=== PATIENT | male | born 1990 | race Caucasian/White ===

== ENCOUNTER 2018-10-21 14:51 | Emergency (ER) | payer OTHER ==
[2018-10-21] MEDS ORDERED: KETOROLAC 30 MG/ML 1 ML VIAL IVP STA (15:35)
[2018-10-21] MEDS ORDERED: ONDANSETRON 4 MG/2 ML VIAL IVP STA (15:35)
[2018-10-21] MEDS ORDERED: diphenhydrAMINE 50 MG/ML 1 ML VIAL IVP STA (15:35)
[2018-10-21] MEDS ORDERED: SODIUM CHLORIDE 0.9% 1,000 ML IV STA (15:35)
[2018-10-21 16:00] LABS: Basophils % (A) 0 %; Eosinophils # (A) 0.3 k/uL (0-0.7); Eosinophils % (A) 3 %; HCT 43.1 % (39.0-53.0); HGB 14.8 gm/dL (13.0-17.5); Lymphocytes # (A) 2.2 k/uL (1.0-4.8); Lymphocytes % (A) 21 %; MCHC 34.4 g/dL (31.0-37.0); MCV 84.4 fL (80.0-100.0); Mean Platelet Volume 6.7; Monocytes # (A) 0.3 k/uL (0-1.0); Monocytes % (A) 3 %; Neutrophils # (A) 7.5 k/uL (1.3-7.7); Neutrophils % (A) 73 %; Platelet Count 278 k/uL (150-450); RBC 5.11 m/uL (4.30-5.90); RDW 12.9 % (11.5-15.5); WBC 10.3 k/uL (3.8-10.6)
[2018-10-21 16:10] LABS: ALT 32 U/L (21-72); AST 22 U/L (17-59); African American GFR (CKD) >90 (>60 ml/min/1.73 sqM); Albumin 4.6 g/dL (3.5-5.0); Alkaline Phosphatase 54 U/L (38-126); Anion Gap 12 mmol/L; Blood Urea Nitrogen 17 mg/dL (9-20); Calcium 9.9 mg/dL (8.4-10.2); Carbon Dioxide 23 mmol/L (22-30); Chloride 104 mmol/L (98-107); Glucose 109 mg/dL (74-99); Potassium 3.9 mmol/L (3.5-5.1); Sodium 139 mmol/L (137-145); Total Bilirubin 0.4 mg/dL (0.2-1.3); Total Protein 7.2 g/dL (6.3-8.2)
--- NOTE | 2018-10-21 16:16 | XR ---
EXAMINATION TYPE: XR chest 2V DATE OF EXAM: 10/21/2018 COMPARISON: 02/15/2013 INDICATION: Cough, pain TECHNIQUE: Frontal and lateral views of the chest are obtained. FINDINGS: The heart size is normal. The pulmonary vasculature is normal. The lungs are clear. Azygos fissure is present, normal variant. IMPRESSION: 1. No acute pulmonary process.
--- NOTE | 2018-10-21 16:32 | ED ---
Headache HPI - General Chief Complaint: Headache Stated Complaint: Headache, vomiting Time Seen by Provider: 10/21/18 15:11 Mode of arrival: ambulatory Limitations: no limitations - History of Present Illness Initial Comments: Patient is a 28-year-old male presenting to the emergency Department with complaints of nausea, vomiting, headache 5 days. Patient states he started fe jose sick about a week ago with nausea and vomiting as well as having trouble urinating. Patient admits to having diarrhea the first couple days, but denies diarrhea presently. Patient also admits to having hot flashes, chills, mild cough, chest congestion. Patient states he has a history of migraines and this is not feel as severe as those. Patient does take Imitrex for his migraines. Patient states he has a history of hepatitis C that was treated. Patient denies abdominal pain, chest pain, shortness of breath at this time. Upon arrival, patient is afebrile and resting comfortable on the bed. Patient states he has not taken anything for his headache today. Patient has not been able to eat and drink like normal this past week. Patient denies any other recent illnesses, antibiotic use. - Related Data Home Medications Medication Instructions Recorded Confirmed Buprenorphine HCl/Naloxone HCl 1 film SL BID 10/21/18 10/21/18 [Suboxone 8 mg-2 mg Sl Film] FLUoxetine HCL [PROzac] 20 mg PO DAILY 10/21/18 10/21/18 Lisinopril [Zestril] 10 mg PO DAILY 10/21/18 10/21/18 Omeprazole 20 mg PO DAILY 10/21/18 10/21/18 Previous Rx's Medication Instructions Recorded Ondansetron Odt [Zofran Odt] 8 mg PO Q8HR #10 tab 10/21/18 SUMAtriptan SUCCINATE [Imitrex] 25 mg PO ONCE #8 tablet 10/21/18 Allergies Allergy/AdvReac Type Severity Reaction Status Date / Time No Known Allergies Allergy Verified 10/21/18 15:17 Review of Systems ROS Statement: Those systems with pertinent positive or pertinent negative responses have been documented in the HPI. ROS Other: All systems not noted in ROS Statement are negative. Past Medical History Past Medical History: GERD/Reflux History of Any Multi-Drug Resistant Organisms: MRSA Date of last positivie culture/infection: 2015 MDRO Source:: leg Past Surgical History: No Surgical Hx Reported Past Psychological History: Anxiety, Depression Smoking Status: Current every day smoker Past Alcohol Use History: None Reported Past Drug Use History: None Reported General Exam - General Exam Comments Initial Comments: GENERAL: Well-appearing, well-nourished and in no acute distress. HEAD: Atraumatic, normocephalic. EYES: Pupils equal round and reactive to light, extraocular movements intact, sclera anicteric, conjunctiva are normal. ENT: TMs normal, nares patent, oropharynx clear without exudates. Moist mucous membranes. NECK: Normal range of motion, supple without lymphadenopathy or JVD. LUNGS: Breath sounds clear to auscultation bilaterally and equal. No wheezes rales or rhonchi. HEART: Regular rate and rhythm without murmurs, rubs or gallops. ABDOMEN: Soft, nontender, normoactive bowel sounds. No guarding, no rebound. No masses appreciated. : Deferred EXTREMITIES: Normal range of motion, no pitting or edema. No clubbing or cyanosis. NEUROLOGICAL: Cranial nerves II through XII grossly intact. Normal speech, normal gait. PSYCH: Normal mood, normal affect. SKIN: Warm, Dry, normal turgor, no rashes or lesions noted. Limitations: no limitations Course Vital Signs 10/21/18 10/21/18 14:59 16:00 Temperature 98.2 F Pulse Rate 72 88 Respiratory 18 16 Rate Blood Pressure 127/79 128/65 O2 Sat by Pulse 99 98 Oximetry Medical Decision Making - Medical Decision Making Patient is a 20-year-old male with complaints of nausea, vomiting, headache for the last 5 days. Patient states he has not been able to eat or drink much the last few days. Patient denies any abdominal pain at this time. Patient also admits to having a hard time urinating, however this been going on for a few months now. Patient does see his PCP for this. Patient's exam is unremarkable. Patient is afebrile, no abdominal pain, neuro exam is normal. CBC, CMP, UA are within normal limits. Chest x-ray shows no acute pulmonary process. Patient was given fluids, Zofran, Toradol, Benadryl with improvement in headache. It was discussed with patient that his headache is most likely related to dehydration from a possible viral gastroenteritis. Patient is stable for discharge and is agreement with this plan. Patient will be given a refill for Imitrex and Zofran. Return parameters were discussed with the patient and he verbalized understanding. Case discussed with Dr. Gee. - Lab Data Result diagrams: 10/21/18 15:50 10/21/18 15:50 Lab Results 10/21/18 10/21/18 10/21/18 Range/Units 15:50 15:50 16:00 WBC 10.3 (3.8-10.6) k/uL RBC 5.11 (4.30-5.90) m/uL Hgb 14.8 (13.0-17.5) gm/dL Hct 43.1 (39.0-53.0) % MCV 84.4 (80.0-100.0) fL MCH 29.0 (25.0-35.0) pg MCHC 34.4 (31.0-37.0) g/dL RDW 12.9 (11.5-15.5) % Plt Count 278 (150-450) k/uL Neutrophils % 73 % Lymphocytes % 21 % Monocytes % 3 % Eosinophils % 3 % Basophils % 0 % Neutrophils # 7.5 (1.3-7.7) k/uL Lymphocytes # 2.2 (1.0-4.8) k/uL Monocytes # 0.3 (0-1.0) k/uL Eosinophils # 0.3 (0-0.7) k/uL Basophils # 0.0 (0-0.2) k/uL Sodium 139 (137-145) mmol/L Potassium 3.9 (3.5-5.1) mmol/L Chloride 104 (98-107) mmol/L Carbon Dioxide 23 (22-30) mmol/L Anion Gap 12 mmol/L BUN 17 (9-20) mg/dL Creatinine 1.00 (0.66-1.25) mg/dL Est GFR (CKD-EPI)AfAm >90 (>60 ml/min/1.73 sqM) Est GFR (CKD-EPI)NonAf >90 (>60 ml/min/1.73 sqM) Glucose 109 H (74-99) mg/dL Calcium 9.9 (8.4-10.2) mg/dL Total Bilirubin 0.4 (0.2-1.3) mg/dL AST 22 (17-59) U/L ALT 32 (21-72) U/L Alkaline Phosphatase 54 (38-126) U/L Total Protein 7.2 (6.3-8.2) g/dL Albumin 4.6 (3.5-5.0) g/dL Urine Color Yellow Urine Appearance Clear (Clear) Urine pH 6.5 (5.0-8.0) Ur Specific [place] 1.010 (1.001-1.035) Urine Protein Negative (Negative) Urine Glucose (UA) Negative (Negative) Urine Ketones Negative (Negative) Urine Blood Negative (Negative) Urine Nitrite Negative (Negative) Urine Bilirubin Negative (Negative) Urine Urobilinogen <2.0 (<2.0) mg/dL Ur Leukocyte Esterase Negative (Negative) Disposition Clinical Impression: Nausea & vomiting, Headache Disposition: HOME SELF-CARE Condition: Stable Instructions (If sedation given, give patient instructions): Acute Headache (ED), Dehydration (ED) Additional Instructions: Please return to the Emergency Department if symptoms worsen or any other concerns. Prescriptions: SUMAtriptan SUCCINATE [Imitrex] 25 mg PO ONCE #8 tablet Ondansetron Odt [Zofran Odt] 8 mg PO Q8HR #10 tab Is patient prescribed a controlled substance at d/c from ED?: No Referrals: None,Stated [Primary Care Provider] - 1-2 days
[2018-10-21 17:04] LABS: Appearance,Urine Clear (Clear); Bilirubin,Urine Negative (Negative); Blood,Urine Negative (Negative); Color,Urine Yellow; Glucose,Urine (UA) Negative (Negative); Ketones,Urine Negative (Negative); Leukocyte Esterase,Urine Negative (Negative); Nitrite,Urine Negative (Negative); PH, Urine 6.5 (5.0-8.0); Protein,Urine Negative (Negative); Urobilinogen,Urine <2.0 mg/dL (<2.0)
[2018-10-21 17:40] VITALS: BP 122/71; PULSE 80; RESP 18; TEMP 97.8
== END 2018-10-21 17:40 | disposition home or self-care (01) ==
LOC: EC 14:51
DX: R51 Headache (principal); R11.2 Nausea with vomiting, unspecified; R39.198 Other difficulties with micturition; R05 Cough; R68.83 Chills (without fever); R09.89 Other specified symptoms and signs involving the circulatory and respiratory systems; K21.9 Gastro-esophageal reflux disease without esophagitis; F41.9 Anxiety disorder, unspecified; F32.9 Major depressive disorder, single episode, unspecified; F17.200 Nicotine dependence, unspecified, uncomplicated; Z86.69 Personal history of other diseases of the nervous system and sense organs; Z86.14 Personal history of Methicillin resistant Staphylococcus aureus infection; Z79.891 Long term (current) use of opiate analgesic; Z79.899 Other long term (current) drug therapy
CPT/HCPCS: 36415; 80053; 85025; 81003; 71046; 99283; 96374; 96375 ×2; 96361; J1200; J2405; J1885

== ENCOUNTER 2019-09-13 23:57 | Observation (INO) | payer OTHER ==
[2019-09-14 00:17] VITALS: TEMP 98.5
[2019-09-14 01:22] LABS: Appearance,Urine Clear (Clear); Bilirubin,Urine Negative (Negative); Blood,Urine Negative (Negative); Color,Urine Yellow; Glucose,Urine (UA) Negative (Negative); Ketones,Urine 2+ (Negative); Leukocyte Esterase,Urine Negative (Negative); Nitrite,Urine Negative (Negative); Protein,Urine Trace (Negative); Specific Gravity,Urine 1.028 (1.001-1.035)
--- NOTE | 2019-09-14 02:11 | ED ---
Nausea/Vomiting/Diarrhea HPI - General Chief complaint: Nausea/Vomiting/Diarrhea Stated complaint: Vomiting Time Seen by Provider: 09/14/19 01:32 Source: patient, RN notes reviewed, old records reviewed Mode of arrival: ambulatory Limitations: no limitations - History of Present Illness Initial comments: this is a 29-year-old male for significant nausea and vomiting. Abdominal pain diffuse body pain sweating. Patient is persistent nausea vomiting here in the ER. Nursing travel history sick contacts. Patient's methadone dose was changed is having significant withdrawal from opiate. Patient to nausea vomiting is unable to keep down methadone or any other medications that he does take. Patient has generalized body pain but no specific abdominal pain MD complaint: nausea, vomiting, diarrhea -: days(s) Description of Vomiting: watery, bilious Description of Diarrhea: water Associated Abdominal Pain: Yes Location: diffuse Radiation: none Severity: moderate Severity scale (1-10): 6 Quality: aching Consistency: constant Improves with: none Worsens with: none Context: other (Opiate abuse) Associated Symptoms: myalgias, loss of appetite, malaise, nausea/vomiting, we akness - Related Data Home Medications Medication Instructions Recorded Confirmed Buprenorphine HCl/Naloxone HCl 1 film SL BID 10/21/18 10/21/18 [Suboxone 8 mg-2 mg Sl Film] FLUoxetine HCL [PROzac] 20 mg PO DAILY 10/21/18 10/21/18 Lisinopril [Zestril] 10 mg PO DAILY 10/21/18 10/21/18 Omeprazole 20 mg PO DAILY 10/21/18 10/21/18 Previous Rx's Medication Instructions Recorded Ondansetron Odt [Zofran Odt] 8 mg PO Q8HR #10 tab 10/21/18 SUMAtriptan SUCCINATE [Imitrex] 25 mg PO ONCE #8 tablet 10/21/18 Allergies Allergy/AdvReac Type Severity Reaction Status Date / Time No Known Allergies Allergy Verified 09/14/19 00:15 Review of Systems ROS Statement: Those systems with pertinent positive or pertinent negative responses have been documented in the HPI. ROS Other: All systems not noted in ROS Statement are negative. Past Medical History Past Medical History: GERD/Reflux History of Any Multi-Drug Resistant Organisms: MRSA Date of last positivie culture/infection: 2015 MDRO Source:: leg Past Surgical History: No Surgical Hx Reported Past Psychological History: Anxiety, Depression Smoking Status: Current every day smoker Past Alcohol Use History: Rare Past Drug Use History: Heroin General Exam Limitations: no limitations General appearance: alert, in no apparent distress Head exam: Present: atraumatic, normocephalic, normal inspection Eye exam: Present: normal appearance, PERRL, EOMI. Absent: scleral icterus, conjunctival injection, periorbital swelling ENT exam: Present: normal exam, mucous membranes moist Neck exam: Present: normal inspection. Absent: tenderness, meningismus, lymphadenopathy Respiratory exam: Present: normal lung sounds bilaterally. Absent: respiratory distress, wheezes, rales, rhonchi, stridor Cardiovascular Exam: Present: normal rhythm, tachycardia, normal heart sounds. Absent: systolic murmur, diastolic murmur, rubs, gallop, clicks GI/Abdominal exam: Present: soft, normal bowel sounds. Absent: distended, tenderness, guarding, rebound, rigid Extremities exam: Present: normal inspection, full ROM, normal capillary refill. Absent: tenderness, pedal edema, joint swelling, calf tenderness Back exam: Present: normal inspection Neurological exam: Present: alert, oriented X3, CN II-XII intact Psychiatric exam: Present: normal affect, normal mood Skin exam: Present: warm, dry, intact, normal color. Absent: rash Course Vital Signs 09/14/19 09/14/19 00:12 01:49 Temperature 98.5 F Pulse Rate 106 H Respiratory 18 22 Rate Blood Pressure 142/95 145/84 O2 Sat by Pulse 96 97 Oximetry - Reevaluation(s) Reevaluation #1: 09/14/19 05:17 medical records reviewed Reevaluation #2: 09/14/19 05:17 Patient symptoms difficult to control persistently vomiting here in the ER Medical Decision Making - Medical Decision Making 29 male DF for evaluation of significant opiate withdrawal. Will admit patient for continued medication evaluation and treatment, symptom management - Lab Data Result diagrams: 09/14/19 01:25 09/14/19 01:25 Lab Results 09/14/19 09/14/19 09/14/19 Range/Units 00:21 01:25 01:25 WBC 14.2 H (3.8-10.6) k/uL RBC 5.78 (4.30-5.90) m/uL Hgb 16.8 (13.0-17.5) gm/dL Hct 50.2 (39.0-53.0) % MCV 86.9 (80.0-100.0) fL MCH 29.0 (25.0-35.0) pg MCHC 33.4 (31.0-37.0) g/dL RDW 15.0 (11.5-15.5) % Plt Count 328 (150-450) k/uL Neutrophils % 76 % Lymphocytes % 15 % Monocytes % 6 % Eosinophils % 1 % Basophils % 0 % Neutrophils # 10.8 H (1.3-7.7) k/uL Lymphocytes # 2.2 (1.0-4.8) k/uL Monocytes # 0.9 (0-1.0) k/uL Eosinophils # 0.2 (0-0.7) k/uL Basophils # 0.0 (0-0.2) k/uL Sodium 141 (137-145) mmol/L Potassium 3.7 (3.5-5.1) mmol/L Chloride 106 (98-107) mmol/L Carbon Dioxide 17 L (22-30) mmol/L Anion Gap 18 mmol/L BUN 12 (9-20) mg/dL Creatinine 1.17 (0.66-1.25) mg/dL Est GFR (CKD-EPI)AfAm >90 (>60 ml/min/1.73 sqM) Est GFR (CKD-EPI)NonAf 84 (>60 ml/min/1.73 sqM) Glucose 102 H (74-99) mg/dL Calcium 10.2 (8.4-10.2) mg/dL Phosphorus 2.9 (2.5-4.5) mg/dL Magnesium 2.3 (1.6-2.3) mg/dL Total Bilirubin 0.9 (0.2-1.3) mg/dL AST 38 (17-59) U/L ALT 49 (4-49) U/L Alkaline Phosphatase 77 (38-126) U/L Total Protein 8.2 (6.3-8.2) g/dL Albumin 5.2 H (3.5-5.0) g/dL Amylase 45 (30-110) U/L Lipase <10 L (23-300) U/L Urine Color Yellow Urine Appearance Clear (Clear) Urine pH 6.0 (5.0-8.0) Ur Specific [place] 1.028 (1.001-1.035) Urine Protein Trace H (Negative) Urine Glucose (UA) Negative (Negative) Urine Ketones 2+ H (Negative) Urine Blood Negative (Negative) Urine Nitrite Negative (Negative) Urine Bilirubin Negative (Negative) Urine Urobilinogen 3.0 (<2.0) mg/dL Ur Leukocyte Esterase Negative (Negative) Disposition Clinical Impression: Dehydration, Nausea & vomiting, Opioid withdrawal, Intractable nausea and vomiting Disposition: ADMITTED IP TO THIS HOSP Condition: Fair Is patient prescribed a controlled substance at d/c from ED?: No
[2019-09-14] MEDS ORDERED: DIAZEPAM 5 MG/ML 2 ML INJ IVP STA (02:25)
[2019-09-14] MEDS ORDERED: ONDANSETRON 4 MG/2 ML VIAL IVP STA ×2 (02:25→05:04)
[2019-09-14] MEDS ORDERED: PANTOPRAZOLE 40 MG/10 ML VIAL IVP STA (02:25)
--- NOTE | 2019-09-14 02:49 | XR ---
EXAMINATION TYPE: XR KUB DATE OF EXAM: 09/14/2019 COMPARISON: NONE HISTORY: Abdominal pain TECHNIQUE: 2 views FINDINGS: 2 views upright were obtained and show no sign of intestinal obstruction or pneumoperitoneu m. Fecal pattern is normal. There is no sign of a mass. There are no definite calcifications over the kidneys. Lung bases are clear. IMPRESSION: Nonacute abdomen.
[2019-09-14 02:52] LABS: Basophils % (A) 0 %; Eosinophils # (A) 0.2 k/uL (0-0.7); Eosinophils % (A) 1 %; HCT 50.2 % (39.0-53.0); HGB 16.8 gm/dL (13.0-17.5); Lymphocytes # (A) 2.2 k/uL (1.0-4.8); Lymphocytes % (A) 15 %; MCHC 33.4 g/dL (31.0-37.0); MCV 86.9 fL (80.0-100.0); Mean Platelet Volume 8.5; Monocytes # (A) 0.9 k/uL (0-1.0); Monocytes % (A) 6 %; Neutrophils # (A) 10.8 k/uL (1.3-7.7); Neutrophils % (A) 76 %; Platelet Count 328 k/uL (150-450); RBC 5.78 m/uL (4.30-5.90); WBC 14.2 k/uL (3.8-10.6)
[2019-09-14 03:32] LABS: ALT 49 U/L (4-49); AST 38 U/L (17-59); African American GFR (CKD) >90 (>60 ml/min/1.73 sqM); Albumin 5.2 g/dL (3.5-5.0); Alkaline Phosphatase 77 U/L (38-126); Amylase 45 U/L (30-110); Anion Gap 18 mmol/L; Blood Urea Nitrogen 12 mg/dL (9-20); Calcium 10.2 mg/dL (8.4-10.2); Carbon Dioxide 17 mmol/L (22-30); Chloride 106 mmol/L (98-107); Glucose 102 mg/dL (74-99); Magnesium 2.3 mg/dL (1.6-2.3); Non-African American GFR(CKD) 84 (>60 ml/min/1.73 sqM); Phosphorus 2.9 mg/dL (2.5-4.5); Potassium 3.7 mmol/L (3.5-5.1); Sodium 141 mmol/L (137-145); Total Bilirubin 0.9 mg/dL (0.2-1.3); Total Protein 8.2 g/dL (6.3-8.2)
[2019-09-14] MEDS ORDERED: diphenhydrAMINE 50 MG/ML 1 ML VIAL IVP STA (03:51)
[2019-09-14] MEDS ORDERED: HYDROmorphone 1 MG/ML 1 ML SYRINGE IVP STA ×2 (03:51→05:04)
[2019-09-14] MEDS ORDERED: METOCLOPRAMIDE 5 MG/ML 2 ML VIAL IVP STA (03:51)
[2019-09-14] MEDS ORDERED: HYDROmorphone 1 MG/ML 1 ML SYRINGE IVP PRN (05:04)
[2019-09-14] MEDS ORDERED: ONDANSETRON 4 MG/2 ML VIAL IVP PRN (05:04)
[2019-09-14] MEDS ORDERED: diphenhydrAMINE 50 MG/ML 1 ML VIAL IVP PRN (05:04)
[2019-09-14] MEDS ORDERED: SODIUM CHLORIDE 0.9% 1,000 ML IV ONE (05:04)
[2019-09-14 05:39] VITALS: BP 141/88; PULSE 91; RESP 17
[2019-09-14] MEDS ORDERED: PANTOPRAZOLE 40 MG/10 ML VIAL IVP SCH (09:00)
--- NOTE | 2019-09-14 11:57 | P.DS ---
Providers Date of admission: 09/14/19 05:06 Expected date of discharge: 09/14/19 Attending physician: Eladio Mendez MD Primary care physician: Eladio Mendez MD Hospital Course: Patient left AMA before being seen. Plan - Discharge Summary New Discharge Prescriptions: No Action Omeprazole [PriLOSEC] 40 mg PO DAILY Gabapentin 800 mg PO BID Escitalopram [Lexapro] 10 mg PO DAILY buPROPion HCL [Wellbutrin XL] 300 mg PO DAILY Testosterone Cypionate [Depo-Testosterone] 200 mg IM FR Discharge Medication List Escitalopram [Lexapro] 10 mg PO DAILY 09/14/19 [History] Gabapentin 800 mg PO BID 09/14/19 [History] Omeprazole [PriLOSEC] 40 mg PO DAILY 09/14/19 [History] Testosterone Cypionate [Depo-Testosterone] 200 mg IM FR 09/14/19 [History] buPROPion HCL [Wellbutrin XL] 300 mg PO DAILY 09/14/19 [History] Follow up Appointment(s)/Referral(s): Eladio Mendez MD [Primary Care Provider] - 1-2 days Activity/Diet/Wound Care/Special Instructions: Patient left AMA Discharge Disposition: Left Against Medical Advice
== END 2019-09-14 07:47 | disposition left against medical advice (07) ==
LOC: EC 23:57 → 1SOBS 09-14 05:06
PROVIDERS: ADMIT Family Medicine; ATTEND Family Medicine
DX: F11.23 Opioid dependence with withdrawal (principal); E86.0 Dehydration; R11.2 Nausea with vomiting, unspecified; R19.7 Diarrhea, unspecified; Z53.29 Procedure and treatment not carried out because of patient's decision for other reasons; K21.9 Gastro-esophageal reflux disease without esophagitis; F41.9 Anxiety disorder, unspecified; F32.9 Major depressive disorder, single episode, unspecified; F17.200 Nicotine dependence, unspecified, uncomplicated; Z03.818 Encounter for observation for suspected exposure to other biological agents ruled out; Z79.899 Other long term (current) drug therapy; Z79.890 Hormone replacement therapy; Z86.14 Personal history of Methicillin resistant Staphylococcus aureus infection
CPT/HCPCS: 96376; 96374; 96375; 99285; 36415; 80053; 82150; 83690; 83735; 84100; 85025; 81003; 74018; G0378; U0003; J1200; J2765; J3360; J2405; J1170; C9113

== ENCOUNTER 2019-11-23 01:24 | Observation (INO) | payer OTHER ==
[2019-11-23] MEDS ORDERED: SODIUM CHLORIDE 0.9% 1,000 ML IV STA (02:49)
[2019-11-23] MEDS ORDERED: fentaNYL (PF) 50 MCG/ML 2 ML AMP IVP STA (03:04)
--- NOTE | 2019-11-23 03:14 | ED ---
Nausea/Vomiting/Diarrhea HPI - General Chief complaint: Nausea/Vomiting/Diarrhea Stated complaint: NVD Source: patient, EMS Mode of arrival: EMS Limitations: no limitations - History of Present Illness Initial comments: Bubba is a 29yo M with PMH of opiate abuse, currently on methadone who presents to the ER today via ambulance for evaluation of 2 days of nausea, vomiting and RUQ abdominal pain. Patient reports he has suffered from pain similar to this in the past and the only treatment that was effective was fentanyl. Patient denies any history of gastroparesis Crohn's ulcerative colitis or other GI pathology. She reports she has not been able tolerate any oral intake for 2 days duration, he states he's had vomiting he has a known hiatal hernia and is scheduled to follow up with a surgeon for evaluation of his hernia later this week - Related Data Home Medications Medication Instructions Recorded Confirmed Escitalopram [Lexapro] 10 mg PO DAILY 09/14/19 09/14/19 Gabapentin 800 mg PO BID 09/14/19 09/14/19 Omeprazole [PriLOSEC] 40 mg PO DAILY 09/14/19 09/14/19 Testosterone Cypionate 200 mg IM FR 09/14/19 09/14/19 [Depo-Testosterone] buPROPion HCL [Wellbutrin XL] 300 mg PO DAILY 09/14/19 09/14/19 Allergies Allergy/AdvReac Type Severity Reaction Status Date / Time No Known Allergies Allergy Verified 11/23/19 01:32 Review of Systems ROS Statement: Those systems with pertinent positive or pertinent negative responses have been documented in the HPI. ROS Other: All systems not noted in ROS Statement are negative. Past Medical History Past Medical History: GERD/Reflux History of Any Multi-Drug Resistant Organisms: MRSA Date of last positivie culture/infection: 2015 MDRO Source:: leg Past Surgical History: No Surgical Hx Reported Past Psychological History: Anxiety, Depression Smoking Status: Current every day smoker Past Alcohol Use History: Rare Past Drug Use History: Heroin General Exam - General Exam Comments Initial Comments: Physical Exam GENERAL: Patient is well-developed and well-nourished. Patient is nontoxic and well-hydrated, appears uncomfortable Holding vomit basin with only saliva in it HENT: Normocephalic, Atraumatic. EYES: PERRL, EOMI PULMONARY: Unlabored respirations. CARDIOVASCULAR: RRR Warm and well perfused extremities ABDOMEN: Non-distended Tenderness to palpation in epigastric and RUQ SKIN: No rashes or bruising : Deferred NEUROLOGIC: Alert and oriented Normal speech Normal gait MUSCULOSKELETAL: Moving all extremities with no apparent injury PSYCHIATRIC: No SI/HI Limitations: no limitations Course Vital Signs 11/23/19 11/23/19 11/23/19 01:26 05:00 06:00 Temperature 97.4 F L Pulse Rate 62 64 106 H Respiratory 16 18 16 Rate Blood Pressure 139/95 134/89 155/95 O2 Sat by Pulse 98 95 98 Oximetry Medical Decision Making - Medical Decision Making Patient was seen and evaluated, history was obtained from the patient and review of medical record Patient with nausea, vomiting, epigastric discomfort Labs obtained EKG obtained to evaluate QT prior to medication administration EKG with normal intervals Patient treated with fentanyl IV Labs reviewed mild, leukocytosis, no transaminitis or elevated lipase Patient given Reglan and Benadryl with no improvement Patient given Fentanyl patch for possible narcotic withdraw US of the gallbladder negative for acute pathology Patient continues to spit up but had no vomiting in the ER, however continues to retch and complain of nausea Patient will be placed in observation for intractable nausea and abdominal pain - Lab Data Result diagrams: 11/23/19 02:51 11/23/19 02:51 Lab Results 11/23/19 11/23/19 11/23/19 Range/Units 02:51 02:51 03:20 WBC 13.3 H (3.8-10.6) k/uL RBC 6.09 H (4.30-5.90) m/uL Hgb 17.4 (13.0-17.5) gm/dL Hct 52.7 (39.0-53.0) % MCV 86.4 (80.0-100.0) fL MCH 28.5 (25.0-35.0) pg MCHC 33.0 (31.0-37.0) g/dL RDW 14.3 (11.5-15.5) % Plt Count 311 (150-450) k/uL Neutrophils % 83 % Lymphocytes % 11 % Monocytes % 3 % Eosinophils % 2 % Basophils % 0 % Neutrophils # 11.1 H (1.3-7.7) k/uL Lymphocytes # 1.5 (1.0-4.8) k/uL Monocytes # 0.5 (0-1.0) k/uL Eosinophils # 0.2 (0-0.7) k/uL Basophils # 0.0 (0-0.2) k/uL Sodium 138 (137-145) mmol/L Potassium 5.2 H (3.5-5.1) mmol/L Chloride 103 (98-107) mmol/L Carbon Dioxide 21 L (22-30) mmol/L Anion Gap 14 mmol/L BUN 17 (9-20) mg/dL Creatinine 1.00 (0.66-1.25) mg/dL Est GFR (CKD-EPI)AfAm >90 (>60 ml/min/1.73 sqM) Est GFR (CKD-EPI)NonAf >90 (>60 ml/min/1.73 sqM) Glucose 89 (74-99) mg/dL Calcium 10.1 (8.4-10.2) mg/dL Total Bilirubin 0.8 (0.2-1.3) mg/dL AST 54 (17-59) U/L ALT 46 (4-49) U/L Alkaline Phosphatase 58 (38-126) U/L Total Protein 8.0 (6.3-8.2) g/dL Albumin 4.9 (3.5-5.0) g/dL Lipase <10 L (23-300) U/L Urine Color Yellow Urine Appearance Clear (Clear) Urine pH 7.0 (5.0-8.0) Ur Specific [place] 1.020 (1.001-1.035) Urine Protein Trace H (Negative) Urine Glucose (UA) Negative (Negative) Urine Ketones 3+ H (Negative) Urine Blood Negative (Negative) Urine Nitrite Negative (Negative) Urine Bilirubin Negative (Negative) Urine Urobilinogen <2.0 (<2.0) mg/dL Ur Leukocyte Esterase Trace H (Negative) Urine RBC <1 (0-5) /hpf Urine WBC <1 (0-5) /hpf Urine Mucus Rare H (None) /hpf - EKG Data -: EKG Interpreted by Me EKG Comments: EKG was obtained to evaluate for intervals given patient's multiple medications, EKG was obtained at 3:24 AM, rate is 94 rhythm is sinus tachycardia normal axis, normal intervals, VT 140 QRS 90 QTc [address] elevations or depressions noted acute ischemia or infarction. No QT prolongation. Disposition Clinical Impression: Nausea and vomiting in adult Disposition: ADMITTED IP TO THIS HOSP Condition: Stable Is patient prescribed a controlled substance at d/c from ED?: No Referrals: Eladio Mendez MD [Primary Care Provider] - 1-2 days
[2019-11-23 03:15] LABS: Basophils % (A) 0 %; Eosinophils # (A) 0.2 k/uL (0-0.7); Eosinophils % (A) 2 %; HCT 52.7 % (39.0-53.0); HGB 17.4 gm/dL (13.0-17.5); Lymphocytes # (A) 1.5 k/uL (1.0-4.8); Lymphocytes % (A) 11 %; MCH 28.5 pg (25.0-35.0); MCV 86.4 fL (80.0-100.0); Mean Platelet Volume 7.8; Monocytes # (A) 0.5 k/uL (0-1.0); Monocytes % (A) 3 %; Neutrophils # (A) 11.1 k/uL (1.3-7.7); Neutrophils % (A) 83 %; Platelet Count 311 k/uL (150-450); RBC 6.09 m/uL (4.30-5.90); RDW 14.3 % (11.5-15.5); WBC 13.3 k/uL (3.8-10.6)
[2019-11-23 03:33] LABS: ALT 46 U/L (4-49); African American GFR (CKD) >90 (>60 ml/min/1.73 sqM); Anion Gap 14 mmol/L; Blood Urea Nitrogen 17 mg/dL (9-20); Calcium 10.1 mg/dL (8.4-10.2); Carbon Dioxide 21 mmol/L (22-30); Chloride 103 mmol/L (98-107); Glucose 89 mg/dL (74-99); Non-African American GFR(CKD) >90 (>60 ml/min/1.73 sqM); Sodium 138 mmol/L (137-145); Total Bilirubin 0.8 mg/dL (0.2-1.3)
[2019-11-23 03:36] LABS: Appearance,Urine Clear (Clear); Bilirubin,Urine Negative (Negative); Blood,Urine Negative (Negative); Color,Urine Yellow; Glucose,Urine (UA) Negative (Negative); Ketones,Urine 3+ (Negative); Leukocyte Esterase,Urine Trace (Negative); Mucus,Urine Rare /hpf; Nitrite,Urine Negative (Negative); Protein,Urine Trace (Negative); RBC,Urine <1 /hpf (0-5); Urobilinogen,Urine <2.0 mg/dL (<2.0); WBC,Urine <1 /hpf (0-5)
--- NOTE | 2019-11-23 04:32 | US ---
EXAMINATION TYPE: US gallbladder DATE OF EXAM: 11/23/2019 COMPARISON: NONE CLINICAL HISTORY: ruq pain. Pain EXAM MEASUREMENTS: Liver Length: 16.9 cm Gallbladder Wall: 0.3 cm CBD: 0.5 cm Right Kidney: 11.1 x 5.5 x 5.7 cm Pancreas: Obscured by bowel gas Liver: Visualized portions appeared wnl Gallbladder: wnl, wall thickness upper limits of normal Evidence for sonographic Hussein's sign: Yes CBD: wnl Right Kidney: No evidence of hydro, possible 0.5 cm renal calculus mid IMPRESSION: No gallstones or dilated ducts. No evidence of cholecystitis. Nonobstructing right renal calculus.
[2019-11-23 04:33] LABS: Potassium 5.2 mmol/L (3.5-5.1)
[2019-11-23 04:34] LABS: AST 54 U/L (17-59); Albumin 4.9 g/dL (3.5-5.0); Alkaline Phosphatase 58 U/L (38-126)
[2019-11-23] MEDS ORDERED: METOCLOPRAMIDE 5 MG/ML 2 ML VIAL IVP STA (04:37)
[2019-11-23] MEDS ORDERED: diphenhydrAMINE 50 MG/ML 1 ML VIAL IVP STA (04:37)
[2019-11-23] MEDS ORDERED: NALOXONE 0.4 MG/ML 1 ML VIAL IV PRN (06:03)
[2019-11-23] MEDS: ONDANSETRON 4 MG/2 ML VIAL IVP PRN ×3 (06:46→23:39)
[2019-11-23] MEDS: SODIUM CHLORIDE 0.9% 1,000 ML IV SCH ×3 (06:47→23:24)
[2019-11-23] MEDS ORDERED: PANTOPRAZOLE 40 MG/10 ML VIAL IV SCH (09:00)
[2019-11-23] MEDS: GABAPENTIN 400 MG CAP PO SCH ×4 (10:19→23:24)
[2019-11-23] MEDS ORDERED: METHADONE 10 MG TAB PO SCH (11:15)
[2019-11-23] MEDS: buPROPion XL 300 MG TAB.ER.24H PO SCH (11:31)
[2019-11-23] MEDS ORDERED: PANTOPRAZOLE 40 MG TABLET PO SCH (12:45)
[2019-11-23] MEDS: HEPARIN SODIUM,PORCINE 5,000 UNIT/ML 1 ML VIAL SQ SCH ×2 (15:20→20:02)
[2019-11-23] MEDS: NICOTINE 14MG/24HR PATCH TRANSDERM SCH (15:20)
--- NOTE | 2019-11-23 16:04 | HP ---
HISTORY AND PHYSICAL DATE OF SERVICE: 11/23/2019 I am covering for Dr. Mendez. CHIEF COMPLAINT: Nausea and vomiting. HISTORY OF PRESENT ILLNESS: This 29-year-old gentleman with a past medical history of GERD, history of MRSA, history of anxiety and depression, being followed by Dr. Mendez in the outpatient setting, was complaining of significant vomiting. The patient had some nausea and right upper quadrant abdominal pain also. The patient had similar pain previously but the only treatment was fentanyl according to him. Patient also was using IV drug abuse about 2 years ago. There is no history of fevers or rigors, no headache, loss of consciousness or seizures at this time. The patient smokes occasional pot. PAST MEDICAL HISTORY: History of GERD, history of MRSA history of anxiety and depression, history of nicotine dependence. MEDICATIONS: Prior to admission include home medications of testosterone, Cialis, sumatriptan, Zofran Protonix, Reglan, Prilosec, gabapentin, Catapres, Wellbutrin XL. ALLERGIES: None. FAMILY HISTORY: No history of heart disease or strokes in family. SOCIAL HISTORY: History of smoking. History of substance abuse as mentioned earlier. REVIEW OF SYSTEMS: ENT: No diminished vision. No diminished hearing. CARDIOVASCULAR: No angina. RESPIRATORY: No cough or hemoptysis. GI: As mentioned earlier. : As mentioned earlier. SKIN: No rash no edema. NERVOUS SYSTEM: No numbness or weakness. ALLERGY/IMMUNOLOGY: No asthma or hayfever. MUSCULOSKELETAL: As mentioned earlier. HEMATOLOGY/ONCOLOGY: No history of anemia. ENDOCRINE: As mentioned earlier. CONSTITUTIONAL: As mentioned earlier. DERMATOLOGY: Negative. RHEUMATOLOGY: Negative. PSYCHIATRY: As mentioned earlier. PHYSICAL EXAMINATION: Pulse 90, blood pressure 130/60, respirations 13, temp 97.9, pulse ox 96% on room air. SKIN: Conjunctivae normal. Oral mucosa moist. NECK: No jugular venous distention. No lymph node enlargement. CARDIOVASCULAR: First and second heart sounds heard. LUNGS: Breath sounds diminished in the bases. Few scattered rhonchi and crackles. ABDOMEN: Soft, obese, mild diffuse tenderness present. No guarding. No rigidity. No mass palpable. LEGS: No edema NERVOUS SYSTEM: Higher functions as mentioned earlier. Moves all 4 limbs. No focal motor or sensory deficits. LYMPHATICS: No lymph nodes palpable in the neck, axillae or groin. SKIN: No ulcer, rash, bleeding. JOINTS: No acute deformities. LABS: WBC 13, hemoglobin 17.4, sodium 130, potassium 5.2. ASSESSMENT: 1. Abdominal pain, nausea, vomiting for evaluation, possible acute gastritis. 2. Increased WBC of undetermined significance. 3. Mild hyperkalemia. 4. History of GERD. 5. History of MRSA. 6. History of anxiety, depression. 7. History of nicotine dependence. 8. History of substance abuse with heroin. RECOMMENDATION: In this is a 29-year-old gentleman who presented with multiple complex medical issues, we will monitor the patient closely. Continue the current management and symptomatic treatment. Otherwise I would recommend continue the current medications. The patient is on methadone which may be restarted. Symptomatic treatment will be provided. Increase the dose of Protonix to 40 mg IV twice daily. Prognosis guarded because of multiple complex. Repeat labs. Further recommendations to follow. Dr. Mendez will follow with the patient in the morning. MMODL / IJN: [id number] /
[2019-11-23] MEDS: KETOROLAC 15 MG/ML 1 ML VIAL IVP SCH ×3 (17:09→23:24)
[2019-11-23 17:33] LABS: Urine Alcohol Negative (Negative); Urine Barbiturate Negative (Negative); Urine Cocaine Negative (Negative); Urine Methadone Positive (Negative); Urine Opiates Negative (Negative); Urine Phencyclidine Negative (Negative)
[2019-11-23] MEDS ORDERED: PROMETHAZINE INJ 12.5 MG in SODIUM CHLORIDE 0.9% 50 ML IVPB PRN (17:43)
[2019-11-23] MEDS: METOCLOPRAMIDE 5 MG/ML 2 ML VIAL IVP PRN (20:01)
[2019-11-23] MEDS: PANTOPRAZOLE 40 MG/10 ML VIAL IVP SCH (20:02)
[2019-11-23] MEDS: cloNIDine HCL 0.1 MG TAB PO PRN (20:04)
[2019-11-24] MEDS: METOCLOPRAMIDE 5 MG/ML 2 ML VIAL IVP PRN ×3 (03:36→17:22)
[2019-11-24] MEDS: METHADONE 10 MG TAB PO SCH (06:02)
[2019-11-24] MEDS: SODIUM CHLORIDE 0.9% 1,000 ML IV SCH ×3 (06:06→21:07)
[2019-11-24] MEDS: ONDANSETRON 4 MG/2 ML VIAL IVP PRN ×2 (08:21→16:33)
[2019-11-24] MEDS: GABAPENTIN 400 MG CAP PO SCH ×4 (08:21→23:16)
[2019-11-24] MEDS: PANTOPRAZOLE 40 MG/10 ML VIAL IVP SCH ×2 (08:21→20:55)
[2019-11-24] MEDS: HEPARIN SODIUM,PORCINE 5,000 UNIT/ML 1 ML VIAL SQ SCH ×2 (08:21→21:06)
[2019-11-24] MEDS: buPROPion XL 300 MG TAB.ER.24H PO SCH (08:21)
[2019-11-24] MEDS: NICOTINE 14MG/24HR PATCH TRANSDERM SCH (08:21)
[2019-11-24] MEDS: KETOROLAC 15 MG/ML 1 ML VIAL IVP SCH ×3 (10:47→23:16)
[2019-11-24] MEDS: cloNIDine HCL 0.1 MG TAB PO PRN ×2 (12:12→21:07)
--- NOTE | 2019-11-24 15:05 | P.PN ---
Subjective Progress Note Date: 11/24/19 This is a 29-year-old gentleman admitted with nausea and vomiting , possible methadone withdrawal and multiple other medical issues. Reports positive nausea, no emesis. Abdominal pain with coughing. Minimal appetite. Positive shakiness, no diaphoresis. Denies chest pain, palpitations or increased shor tness of breath. No new labs today. Afebrile. Objective - Vital Signs Vital signs: Vital Signs Temp 98.6 F 11/24/19 08:07 Pulse 65 11/24/19 08:47 Resp 16 11/24/19 08:47 BP 132/64 11/24/19 08:07 Pulse Ox 96 11/24/19 08:07 Intake & Output 11/23/19 11/24/19 11/24/19 18:59 06:59 18:59 Intake Total 780 480 Balance 780 480 Intake: Intake, IV Titration 780 Amount Sodium Chloride 0.9% 1, 780 000 ml @ 130 mls/hr IV . Q7H42M [facility] Rx#:[id number] Oral 480 Other: # Voids 1 1 - Exam PHYSICAL EXAM: VITAL SIGNS: As above GENERAL: Sitting up in bed, no acute distress HEENT: Conjunctivae normal. eyes normal. NECK: No JVD. No thyroid enlargement. No LNs CARDIOVASCULAR: S1, S2 regular. No murmur RESPIRATION: Breath sounds diminished in the bases. No rhonchi or crackles. No bronchial breathing. ABDOMEN: Soft, nondistended, tender mid to right upper quadrant, No guarding. no masses palpable. Bowel sounds heard. LEGS: No edema. no swelling PSYCHIATRY: Alert and oriented X3, mood and affect normal. NERVOUS SYSTEM: Cranial N 2-12 grossly normal. Moves all 4 limbs. No focal deficits. Strength and sensation grossly intact.. Skin: Warm and dry, no rash - Labs CBC & Chem 7: 11/23/19 02:51 11/23/19 02:51 Labs: Abnormal Lab Results - Last 24 Hours (Table) 11/23/19 Range/Units 03:20 Urine Methadone Screen Positive H (Negative) ng/mL U Cannabinoids Screen Positive H (Negative) ng/mL Assessment and Plan Assessment: Abdominal pain, nausea, vomiting for evaluation, possible acute gastritis, possible methadone withdrawal, possible dysregulation Leukocytosis Mild hyperkalemia Gastroesophageal reflux disease History of substance abuse with heroin Ongoing nicotine dependence Anxiety Depression Plan: Continue on current medication regime ,monitoring and symptomatic treatment. Maintain IV fluid hydration, PPI , antiemetics, clonidine. GI consult in place with recommendations pending. Close monitoring of WBC, electrolytes with repeat labs ordered for a.m. The impression and plan of care has been dictated as directed. : I performed a history and examination of this patient, discussed the same with the dictator. I agree with the dictator's note ,documented as a scribe. Any additional findings or plans will be noted.
[2019-11-25] MEDS: ONDANSETRON 4 MG/2 ML VIAL IVP PRN ×2 (03:22→12:18)
[2019-11-25] MEDS: METOCLOPRAMIDE 5 MG/ML 2 ML VIAL IVP PRN (05:40)
[2019-11-25] MEDS: METHADONE 10 MG TAB PO SCH (06:02)
[2019-11-25 06:04] LABS: Basophils # (A) 0.1 k/uL (0-0.2); Basophils % (A) 1 %; Eosinophils # (A) 0.2 k/uL (0-0.7); Eosinophils % (A) 2 %; HCT 50.7 % (39.0-53.0); HGB 16.2 gm/dL (13.0-17.5); Lymphocytes # (A) 3.2 k/uL (1.0-4.8); Lymphocytes % (A) 33 %; MCH 27.8 pg (25.0-35.0); MCHC 32.1 g/dL (31.0-37.0); MCV 86.6 fL (80.0-100.0); Mean Platelet Volume 7.3; Monocytes # (A) 0.6 k/uL (0-1.0); Monocytes % (A) 6 %; Neutrophils # (A) 5.6 k/uL (1.3-7.7); Neutrophils % (A) 57 %; Platelet Count 308 k/uL (150-450); RBC 5.85 m/uL (4.30-5.90); RDW 14.5 % (11.5-15.5); WBC 9.9 k/uL (3.8-10.6)
[2019-11-25] MEDS: SODIUM CHLORIDE 0.9% 1,000 ML IV SCH ×2 (06:04→11:19)
[2019-11-25 06:16] LABS: African American GFR (CKD) >90 (>60 ml/min/1.73 sqM); Anion Gap 10 mmol/L; Blood Urea Nitrogen 10 mg/dL (9-20); Calcium 9.4 mg/dL (8.4-10.2); Carbon Dioxide 22 mmol/L (22-30); Chloride 105 mmol/L (98-107); Glucose 87 mg/dL (74-99); Non-African American GFR(CKD) >90 (>60 ml/min/1.73 sqM); Potassium 4.3 mmol/L (3.5-5.1); Sodium 137 mmol/L (137-145)
[2019-11-25] MEDS: KETOROLAC 15 MG/ML 1 ML VIAL IVP SCH ×2 (06:21→11:18)
--- NOTE | 2019-11-25 06:54 | P.CONS ---
History of Present Illness - Reason for Consult Consult date: 11/24/19 Nausea and vomiting Requesting physician: Eladio Mendez - Chief Complaint Nausea and vomiting - History of Present Illness 29-year-old male who has a history of anxiety, depression, MRSA infection and GERD who presents the hospital with nausea vomiting. He reports approximately 3 episodes of intractable nausea and vomiting. He presented for evaluation after this last episode. He reports episodes of intractable nausea and vomiting with associated epigastric and right upper quadrant pain. The patient reports that he has been on PPI therapy and Pepcid at night in the outpatient setting. He is continued to have symptoms. He has been told that this is possibly related to methadone withdrawal. No prior episodes of endoscopy. The patient had ultrasound of the abdomen which was performed in evaluation which was negative for any CBD dilation or gallstones. Laboratory evaluation normal with WBC 13.3, hemoglobin 17.4, platelet count 311,000, total bilirubin 0.8, alkaline phosphatase 58, AST 54 and ALT 46. He denies any history of peptic ulcer disease. Review of Systems REVIEW OF SYSTEMS: CONSTITUTIONAL: Denies any fevers, chills, weight change or fatigue. CARDIOVASCULAR: Denies any chest pain, palpitations high or low blood pressures RESPIRATORY: Denies any shortness of breath, hemoptysis or cough. GENITOURINARY: No dysuria or hematuria. MUSCULOSKELETAL: No weakness reported. SKIN: Denies any new rashes or lesions, jaundice or pallor. PSYCHIATRIC: History of depression and anxiety. NEUROLOGY: Denies headache, denies any new focal deficits. EARS/NOSE/THROAT: No recent hearing change, congestion, nasal discharge or sore throat. EYES: No pain in eyes, discharge or change in vision. GASTROINTESTINAL: As per HPI. Past Medical History Past Medical History: GERD/Reflux History of Any Multi-Drug Resistant Organisms: MRSA Year Discovered:: 2016 MDRO Source:: leg Past Surgical History: No Surgical Hx Reported Past Psychological History: Anxiety, Depression Smoking Status: Current every day smoker Past Alcohol Use History: Rare Past Drug Use History: Heroin Additional History: family history: Reports family history of small bowel obstruction his mother. No inflammatory bowel disease or colon cancer. Medications and Allergies Home Medications Medication Instructions Recorded Confirmed Type Gabapentin 800 mg PO QID 09/14/19 11/23/19 History Omeprazole [PriLOSEC] 40 mg PO BID 09/14/19 11/23/19 History Testosterone Cypionate 150 mg IM FR 09/14/19 11/23/19 History [Depo-Testosterone] buPROPion HCL [Wellbutrin XL] 300 mg PO DAILY 09/14/19 11/23/19 History Metoclopramide [Reglan] 10 mg PO TID PRN 11/23/19 11/23/19 History Ondansetron [Zofran] 4 mg PO TID PRN 11/23/19 11/23/19 History Pantoprazole Sodium [Protonix] 40 mg PO DAILY 11/23/19 11/23/19 History SUMAtriptan succinate [Sumatriptan 100 mg PO DAILY PRN 11/23/19 11/23/19 History Succinate] Tadalafil [Cialis] 5 mg PO DAILY PRN 11/23/19 11/23/19 History cloNIDine HCL [Catapres] 0.1 mg PO TID PRN 11/23/19 11/23/19 History tadalafiL [Tadalafil] 10 mg PO DAILY PRN 11/23/19 11/23/19 History Allergies Allergy/AdvReac Type Severity Reaction Status Date / Time No Known Allergies Allergy Verified 11/23/19 09:36 Physical Exam Vitals: Vital Signs Temp Pulse Resp BP Pulse Ox 11/24/19 08:07 98.6 F 65 16 132/64 96 11/24/19 03:00 98.3 F 94 16 125/71 94 L 11/23/19 19:35 98.3 F 94 16 156/88 98 11/23/19 15:48 98.2 F 92 12 136/78 92 L 11/23/19 09:00 97.9 F 90 13 131/68 96 Intake and Output 11/23/19 11/24/19 11/24/19 22:59 06:59 14:59 Intake Total 480 Balance 480 Intake: Oral 480 Other: # Voids 1 1 On physical examination, patient appears comfortable in no apparent distress. HEAD: Normocephalic, atraumatic. EYES: No scleral icterus. No conjunctival injection. MOUTH: No lesions, tongue midline. NECK: Trachea midline, no gross abnormalities. CHEST: Clear to auscultation with no wheezing or rhonchi appreciated. HEART: Regular rate and rhythm. ABDOMEN: Soft, obese. Bowel sounds are positive. No organomegaly. No guarding or rigidity. EXTREMITIES: No pedal edema. SKIN: No rashes, no jaundice. NEUROLOGIC: Alert and oriented x3. No focal deficits. Results CBC & Chem 7: 11/25/19 05:35 11/25/19 05:35 Labs: Abnormal Lab Results - Last 24 Hours (Table) 11/23/19 Range/Units 03:20 Urine Methadone Screen Positive H (Negative) ng/mL U Cannabinoids Screen Positive H (Negative) ng/mL US - abdomen: report reviewed (ultrasound of the abdomen with no gallstones or biliary dilation.) Assessment and Plan (1) Intractable nausea and vomiting Narrative/Plan: 29-year-old male with multiple medical comorbidities including anxiety and depression, marijuana use, GERD who presented to the hospital with complaints of nausea and vomiting. She reports approximately 3 episodes of intractable nausea and vomiting occurring since August. Patient reports being on PPI therapy in the outpatient setting. No history of peptic ulcer disease. No signs or symptoms GI bleeding. Ultrasound of the abdomen negative for any gallstones or dilated ducts. No prior endoscopy. Unclear if related to uncontrolled reflux, marijuana hyperemesis syndrome,medication effect as patient reports being told this may be secondary to methadone withdrawal, or other etiology. Current Visit: No Status: Acute Code(s): R11.2 - NAUSEA WITH VOMITING, UNSP ECIFIED SNOMED Code(s): 251644001 (2) GERD (gastroesophageal reflux disease) Current Visit: Yes Status: Acute Code(s): K21.9 - GASTRO-ESOPHAGEAL REFLUX DISEASE WITHOUT ESOPHAGITIS SNOMED Code(s): 334761277 Plan: supportive care Clear liquid diet Nothing by mouth after midnight Continue Protonix twice a day Continue antiemetic therapy as needed Plan for EGD tomorrow for further evaluation all the risks, benefits and possible complications of the procedure described to the patient at length with all of his questions answered to his satisfaction Thank you for allowing us to participate in the care of the patient
[2019-11-25] MEDS: PANTOPRAZOLE 40 MG/10 ML VIAL IVP SCH (07:40)
[2019-11-25] MEDS: buPROPion XL 300 MG TAB.ER.24H PO SCH (07:40)
[2019-11-25] MEDS: NICOTINE 14MG/24HR PATCH TRANSDERM SCH (07:40)
[2019-11-25] MEDS: GABAPENTIN 400 MG CAP PO SCH ×3 (07:40→15:16)
[2019-11-25] MEDS: HEPARIN SODIUM,PORCINE 5,000 UNIT/ML 1 ML VIAL SQ SCH (07:41)
--- NOTE | 2019-11-25 13:10 | P.DS ---
Providers Date of admission: 11/23/19 06:07 Expected date of discharge: 11/25/19 Attending physician: Eladio Mendez MD Consults: 11/23/19 17:40 Consult Physician Routine Consulting Provider: Ciara Velasco Consult Reason/Comments: abdominal pain/ongoing nausea Do you want consulting provider notified?: Yes Primary care physician: Eladio Mendez MD Hospital Course: Final Diagnoses: Abdominal pain, nausea, vomiting for evaluation, possible acute gastritis, possible methadone withdrawal, possible dysregulation Leukocytosis Mild hyperkalemia Gastroesophageal reflux disease History of substance abuse with heroin Ongoing nicotine dependence Anxiety Depression Hospital course:This is a 29-year-old gentleman admitted with nausea and vomiting , possible methadone withdrawal and multiple other medical issues. Reports positive nausea, no emesis. Abdominal pain with coughing. Minimal appetite. Positive shakiness, no diaphoresis. Denies chest pain, palpitations or increased shortness of breath. No new labs today. Afebrile. Evaluated by GI, scheduled for EGD today. Patient will be discharged home today in a stable condition with guarded prognosis, pending EGD results, final DC recommendations and clearance of GI. The impression and plan of care has been dictated as directed. : I performed a history and examination of this patient, discussed the same with the dictator. I agree with the dictator's note ,documented as a scribe. Any additional findings or plans will be noted. Patient Condition at Discharge: Stable Plan - Discharge Summary New Discharge Prescriptions: New Nicotine 14Mg/24Hr Patch [Habitrol] 1 patch TRANSDERM DAILY #30 patch Continue Omeprazole [PriLOSEC] 40 mg PO BID Gabapentin 800 mg PO QID buPROPion HCL [Wellbutrin XL] 300 mg PO DAILY Testosterone Cypionate [Depo-Testosterone] 150 mg IM FR cloNIDine HCL [Catapres] 0.1 mg PO TID PRN PRN Reason: Sweating Metoclopramide [Reglan] 10 mg PO TID PRN PRN Reason: Nausea Ondansetron [Zofran] 4 mg PO TID PRN PRN Reason: Pain SUMAtriptan succinate [Sumatriptan Succinate] 100 mg PO DAILY PRN PRN Reason: Migraine Headache Tadalafil [Cialis] 5 mg PO DAILY PRN PRN Reason: E.D tadalafiL [Tadalafil] 10 mg PO DAILY PRN PRN Reason: E.D. Changed Pantoprazole Sodium [Protonix] 40 mg PO BID #60 tab Discharge Medication List Gabapentin 800 mg PO QID 09/14/19 [History] Omeprazole [PriLOSEC] 40 mg PO BID 09/14/19 [History] Testosterone Cypionate [Depo-Testosterone] 150 mg IM FR 09/14/19 [History] buPROPion HCL [Wellbutrin XL] 300 mg PO DAILY 09/14/19 [History] Metoclopramide [Reglan] 10 mg PO TID PRN 11/23/19 [History] Ondansetron [Zofran] 4 mg PO TID PRN 11/23/19 [History] SUMAtriptan succinate [Sumatriptan Succinate] 100 mg PO DAILY PRN 11/23/19 [History] Tadalafil [Cialis] 5 mg PO DAILY PRN 11/23/19 [History] cloNIDine HCL [Catapres] 0.1 mg PO TID PRN 11/23/19 [History] tadalafiL [Tadalafil] 10 mg PO DAILY PRN 11/23/19 [History] Nicotine 14Mg/24Hr Patch [Habitrol] 1 patch TRANSDERM DAILY #30 patch 11/25/19 [Rx] Pantoprazole Sodium [Protonix] 40 mg PO BID #60 tab 11/25/19 [Rx] Follow up Appointment(s)/Referral(s): Eladio Mendez MD [Primary Care Provider] - 3 Days
[2019-11-25] MEDS ORDERED: LIDOCAINE 1% INJ 10MG/ML (20 ML MDV) ONE (14:28)
[2019-11-25] MEDS ORDERED: IV FLUID CONTINUATION 1,000 ML IV ONE (14:28)
[2019-11-25] MEDS ORDERED: MIDAZOLAM 2 MG/2 ML VIAL ONE (14:28)
[2019-11-25] MEDS ORDERED: PROPOFOL 10 MG/ML 20 ML VIAL IV ONE (14:28)
--- NOTE | 2019-11-25 14:55 | P.PCN ---
Date of Procedure: 11/25/19 Description of Procedure: BRIEF HISTORY: 29-year-old male who has a history of anxiety, depression, MRSA infection and GERD who presents the hospital with nausea vomiting. He reports approximately 3 episodes of intractable nausea and vomiting. He presented for evaluation after this last episode. He reports episodes of intractable nausea and vomiting with associated epigastric and right upper quadrant pain. The patient reports that he has been on PPI therapy and Pepcid at night in the outpatient setting. He is continued to have symptoms. He has been told that this is possibly related to methadone withdrawal. No prior episodes of endoscopy. The patient had ultrasound of the abdomen which was performed in evaluation which was negative for any CBD dilation or gallstones. Laboratory evaluation normal with WBC 13.3, hemoglobin 17.4, platelet count 311,000, total bilirubin 0.8, alkaline phosphatase 58, AST 54 and ALT 46. He denies any history of peptic ulcer disease. PROCEDURE PERFORMED: Esophagogastroduodenoscopy with biopsy. PREOPERATIVE DIAGNOSIS: Intractable nausea and vomiting, epigastric abdominal pain. ESTIMATED BLOOD LOSS: Minimal. IV sedation per anesthesia. PROCEDURE: After informed consent was obtained, the patient was brought into the endoscopy unit. IV sedation was administered by Anesthesia under continuous monitoring. Initially the Olympus GIF-190 video endoscope was inserted into the mouth. Esophagus intubated without any difficulty. It was gradually advanced into the stomach and duodenum and carefully examined. The bulb and the second part of the duodenum appeared normal, with biopsies taken. The scope at this time was withdrawn to the stomach, adequately insufflated with air, and upon careful examination, mucosa of the antrum, body, cardia and the fundus appeared normal, except for some mild punctate erythema in the antrum and body suggestive of mild gastritis with biopsies taken. The scope was then withdrawn into the esophagus. The GE junction was located at 39 cm from the incisors and biopsied. 1 cm hiatal hernia noted. The esophagus appeared normal. There were no erosions or ulcerations seen and the patient tolerated the procedure well. IMPRESSION: 1. Mild gastritis. 2. Biopsies of the GE junction, antrum body and duodenum. RECOMMENDATIONS: The findings of this examination were discussed with the patient. Okay to resume diet. Okay to resume medications. We'll pathology from biopsies. Continue PPI therapy. Continue symptomatic management. Okay for discharge when otherwise medically stable.
[2019-11-25 15:01] VITALS: RESP 14; TEMP 98.1
[2019-11-25] MEDS: cloNIDine HCL 0.1 MG TAB PO PRN (15:16)
[2019-11-25 15:21] VITALS: BP 153/90; PULSE 90
== END 2019-11-25 15:23 | disposition home or self-care (01) ==
LOC: EC 01:24 → 1SOBS 06:07 → OBSVTOIN 11-25 11:28 → INTOOBSV 11-25 11:28 → UNDODISIN 11-25 15:23
PROVIDERS: ADMIT Family Medicine; ATTEND Family Medicine
DX: K29.50 Unspecified chronic gastritis without bleeding (principal); K44.9 Diaphragmatic hernia without obstruction or gangrene; K21.9 Gastro-esophageal reflux disease without esophagitis; D72.829 Elevated white blood cell count, unspecified; E87.5 Hyperkalemia; R05 Cough; F11.11 Opioid abuse, in remission; F17.200 Nicotine dependence, unspecified, uncomplicated; F41.9 Anxiety disorder, unspecified; F32.9 Major depressive disorder, single episode, unspecified; E66.9 Obesity, unspecified; Z68.33 Body mass index [BMI] 33.0-33.9, adult; Z86.14 Personal history of Methicillin resistant Staphylococcus aureus infection; Z83.79 Family history of other diseases of the digestive system; Z79.890 Hormone replacement therapy; Z79.899 Other long term (current) drug therapy
CPT/HCPCS: 96361 ×3; 96372; 96375 ×2; 96376 ×2; 96374; 99285; 36415; 93005; 88305; 80053; 80048; 83690; 85025 ×2; 81001; 80306; 76705; 43239; G0378 ×3; S4990 ×3; J2250; J1200; J1644; J2550; J2765 ×3; J2405 ×3; J2001; J3010; S0109 ×3; J1885 ×3; J2704; C9113 ×3

== ENCOUNTER → 2020-01-04 | Outpatient (CLI) | payer OTHER | END | disposition home or self-care (01) | LOC: RADNMMAIN 07:23 | PROVIDERS: ATTEND Physician Assistant | DX: Z53.9 Procedure and treatment not carried out, unspecified reason (principal) ==

== ENCOUNTER → 2020-01-08 | Outpatient (CLI) | payer OTHER ==
--- NOTE | 2020-01-08 16:54 | NM ---
EXAMINATION TYPE: NM hepatobiliary w EF DATE OF EXAM: 01/08/2020 COMPARISON: Ultrasound gallbladder 12/13/2019 HISTORY: Right upper quadrant pain TECHNIQUE: After the intravenous administration of 4.03 mCi Tc 99m Mebrofenin hepatobiliary scintigra phy is performed. Immediate images post injection. FINDINGS: There is satisfactory initial accumulation of tracer by the liver. The gallbladder is visualized wit hin 8 minutes. The small bowel activity is noted within 24 minutes. At one hour 8 ounces of oral en sure plus is given to mimic CCK and gallbladder ejection fraction is calculated at 61 %, in the najma l range. Therefore there is no scintigraphic evidence of cystic or common bile duct obstruction, acu te or chronic cholecystitis, or biliary ductal dyskinesia. IMPRESSION: Exam is within normal limits.
== END | disposition home or self-care (01) ==
LOC: RADNMMAIN 13:02
PROVIDERS: ATTEND Internal Medicine Gastroenterology
DX: R10.11 Right upper quadrant pain (principal)
CPT/HCPCS: 78226; A9537

== ENCOUNTER → 2020-12-07 | Outpatient (CLI) | payer OTHER ==
--- NOTE | 2020-12-07 17:23 | CONS ---
CONSULTATION DATE OF SERVICE: 12/07/2020 This 30-year-old gentleman has been evaluated in [facility] for possible obstructive sleep apnea-hypopnea syndrome. Also the patient has a significant amount of movements during the night and possibly of [id number] movements. HISTORY OF PRESENT ILLNESS/SLEEP-WAKE EVALUATION: Patient's usual sleep schedule is from 9 p.m. until 6 or 7 a.m. and on weekends until 10 a.m. He does have problems with falling asleep, has a TV set in the bedroom. He sleeps in different positions. According to his , he snores and has witnessed episodes of stopped breathing during sleep. The patient wakes up from sleep up to 5 times with nocturia, episodes of gasping for air, restless legs, sweating. In the morning, the patient has episodes of throwing up. In the morning the patient wakes up tired, has difficulties paying attention, falling asleep during the day, has problems with memory, concentration, irritability, depression, anxiety, sexual dysfunction. [place] Sleepiness Scale is 6. The patient may take one nap. No history of hypnagogic hallucinations or sleep paralysis. Positive history of significant amount of movement, night terrors, episodes of aggressive behavior during the night, possibly [id number] movements. PAST MEDICAL HISTORY: Positive for depression, acid reflux, allergies, bilateral carpal tunnel syndrome, obstructive bronchitis, hypertension in the past, sinus headaches. SOCIAL HISTORY: Positive for smoking up to 1-1/2 pack a day for 17 years. Alcohol consumption: None at the present time, according to patient. The patient was in assisted for several years, according to him. PAST SURGICAL HISTORY: None. MEDICATIONS: The patient does not remember the dose of medications. Wellbutrin, omeprazole, Lamictal, testosterone, Seroquel, Claritin, gabapentin, Fioricet, Medrol, Zithromax, Imitrex, albuterol. FAMILY HISTORY: Heart problems, stroke, diabetes. REVIEW OF SYSTEMS: No fevers. No double vision. No recent chest pain. No shortness of breath. No abdominal pain. No bleeding episodes. No blood in the urine. No seizure episodes. Multiple awakenings from sleep, snoring, significant amount of movements during sleep, possibly of [id number]-kb-[id number] movements. PHYSICAL EXAMINATION: GENERAL: Pleasant gentleman without distress. VITAL SIGNS: BP 119/83, HR 100, RR 16, height 5 feet 10-3/4 inches, weight 216.6, temperature 98.1, oxygen saturation at room air 96%. HEENT: DILCIA, EOMI, evaluation of oropharynx showed tongue protrudes midline. Low position of soft palate. NECK: Supple, no JVD. Thyroid is not palpable. Neck is wide, measuring 18-1/2 inches in circumference. LUNGS: A few rales and wheezing. HEART: S1, S2 regular. No murmurs, gallops, or rubs. ABDOMEN: Soft and nontender. Bowel sounds are present. No organomegaly appreciated. EXTREMITIES: No clubbing or cyanosis. SEWER CONNECTOR: Awake, alert, and oriented X3. Cranial nerves 2 to 7 intact. There is no fasciculation or atrophy. noted. No focal deficits observed. IMPRESSION: 1. Snoring, witnessed episodes of stopped breathing during sleep, small oropharyngeal air space, wide neck 18-1/2 inches in circumference; obstructive sleep apnea- hypopnea syndrome. 2. Significant amount of movements during sleep; possibly periodic limb movements. 3. History of aggressive behavior during the night and possible fyd-ab-pxxbg movements, possibly REM sleep behavioral disorder. 4. History of night terrors. 5. Depression. 6. Acid reflux. 7. History of hypertension in the past; about 2 years ago was on treatment with lisinopril. 8. History of carpal tunnel syndrome bilaterally. 9. Chronic obstructive pulmonary disease. 10.History of epilepsy with tonic-clonic seizures, last episode 10 years ago. 11.History of sinus headaches. PLAN: 1. Polysomnography for evaluation of patient's breathing during sleep. 2. CPAP/BiPAP titration if sleep study confirms obstructive sleep apnea-hypopnea syndrome. 3. Preferable position during sleep on the side. 4. No driving if patient feels any sleepiness. 5. I will see patient for follow up visit to explain results of testing and following plan. Thank you very much for referring this patient for consultation. Sincerely, Surendra Craig MD, PhD, FAASM Diplomat of [place] [employer] Sleep Medicine [employer] of [place] [employer] [facility] MMODL / IJN: [id number] /
== END | disposition home or self-care (01) ==
LOC: SLEEP 11:53
PROVIDERS: ATTEND Internal Medicine
DX: G47.33 Obstructive sleep apnea (adult) (pediatric) (principal); F32.9 Major depressive disorder, single episode, unspecified; K21.9 Gastro-esophageal reflux disease without esophagitis; G56.03 Carpal tunnel syndrome, bilateral upper limbs; J44.9 Chronic obstructive pulmonary disease, unspecified
CPT/HCPCS: 99211

== ENCOUNTER 2020-12-28 01:07 | Emergency (ER) | payer OTHER ==
[2020-12-28] MEDS ORDERED: SODIUM CHLORIDE 0.9% 1,000 ML IV ONE (01:41)
[2020-12-28] MEDS ORDERED: ONDANSETRON 4 MG/2 ML VIAL IVP STA (01:41)
[2020-12-28 02:20] VITALS: RESP 18
--- NOTE | 2020-12-28 02:31 | ED ---
Abdominal Pain [facility] - General Chief Complaint: Abdominal Pain Stated Complaint: Abdominal Pain Time Seen by Provider: 12/28/20 01:41 Source: patient Mode of arrival: ambulatory Limitations: no limitations - History of Present Illness Initial Comments: Patient is a 30-year-old man with diffuse abdominal pain and nausea. Patient did recently quit taking Suboxone. MD Complaint: abdominal pain -: days(s) Location: diffuse Radiation: none Severity: moderate Quality: cramping, aching Consistency: constant Improves With: nothing Worsens With: nothing Associated Symptoms: nausea, vomiting - Related Data Home Medications Medication Instructions Recorded Confirmed Gabapentin 800 mg PO QID 09/14/19 11/23/19 Omeprazole [PriLOSEC] 40 mg PO BID 09/14/19 11/23/19 Testosterone Cypionate 150 mg IM FR 09/14/19 11/23/19 [Depo-Testosterone] buPROPion HCL [Wellbutrin XL] 300 mg PO DAILY 09/14/19 11/23/19 Metoclopramide [Reglan] 10 mg PO TID PRN 11/23/19 11/23/19 Ondansetron [Zofran] 4 mg PO TID PRN 11/23/19 11/23/19 SUMAtriptan succinate 100 mg PO DAILY PRN 11/23/19 11/23/19 Tadalafil [Cialis] 5 mg PO DAILY PRN 11/23/19 11/23/19 cloNIDine HCL [Catapres] 0.1 mg PO TID PRN 11/23/19 11/23/19 tadalafiL [Tadalafil] 10 mg PO DAILY PRN 11/23/19 11/23/19 Previous Rx's Medication Instructions Recorded Nicotine 14Mg/24Hr Patch [Habitrol] 1 patch TRANSDERM DAILY #30 patch 11/25/19 Pantoprazole Sodium [Protonix] 40 mg PO BID #60 tab 11/25/19 LORazepam [Ativan] 1 mg PO TID 3 Days #15 tab 12/28/20 Ondansetron [Zofran ODT] 4 mg PO Q8HR #20 tab 12/28/20 cloNIDine HCL 0.2 mg PO Q8H #18 tablet 12/28/20 Allergies Allergy/AdvReac Type Severity Reaction Status Date / Time No Known Allergies Allergy Verified 12/28/20 01:14 Review of Systems ROS Statement: Those systems with pertinent positive or pertinent negative responses have been documented in the HPI. ROS Other: All systems not noted in ROS Statement are negative. Constitutional: Denies: fever, chills, weakness Respiratory: Denies: cough, dyspnea Cardiovascular: Denies: chest pain, edema Gastrointestinal: Reports: as per HPI, abdominal pain, nausea, vomiting Genitourinary: Denies: dysuria, hematuria, testicular pain Musculoskeletal: Denies: back pain Skin: Denies: rash Neurological: Denies: headache, weakness, numbness Past Medical History Past Medical History: GERD/Reflux History of Any Multi-Drug Resistant Organisms: MRSA Date of last positivie culture/infection: 2016 MDRO Source:: leg Past Surgical History: No Surgical Hx Reported Past Psychological History: Anxiety, Depression Smoking Status: Current every day smoker Past Alcohol Use History: Rare Past Drug Use History: Heroin General Exam Limitations: no limitations General appearance: alert, in no apparent distress Head exam: Present: atraumatic, normocephalic Eye exam: Present: normal appearance. Absent: scleral icterus, conjunctival injection Respiratory exam: Present: normal lung sounds bilaterally. Absent: respiratory distress, wheezes, rales, rhonchi, stridor Cardiovascular Exam: Present: normal rhythm, tachycardia, normal heart sounds. Absent: systolic murmur, diastolic murmur, rubs, gallop GI/Abdominal exam: Present: soft. Absent: distended, tenderness, guarding, rebound, rigid, mass Extremities exam: Present: normal inspection, normal capillary refill. Absent: pedal edema, calf tenderness Back exam: Present: normal inspection Neurological exam: Present: alert Skin exam: Present: warm, dry, intact, normal color. Absent: rash Course Vital Signs 12/28/20 12/28/20 12/28/20 01:10 02:16 03:10 Temperature 97.9 F Pulse Rate 143 H 124 H 112 H Respiratory 20 18 18 Rate Blood Pressure 142/95 140/100 155/106 O2 Sat by Pulse 97 98 96 Oximetry 12/28/20 12/28/20 05:04 06:15 Temperature 97.8 F Pulse Rate 109 H 108 H Respiratory 18 18 Rate Blood Pressure 145/79 141/98 O2 Sat by Pulse 98 96 Oximetry Medical Decision Making - Lab Data Result diagrams: 12/28/20 02:08 12/28/20 02:08 Lab Results 12/28/20 12/28/20 12/28/20 Range/Units 02:08 02:08 02:08 WBC 9.2 (3.8-10.6) k/uL RBC 5.76 (4.30-5.90) m/uL Hgb 17.3 (13.0-17.5) gm/dL Hct 51.6 (39.0-53.0) % MCV 89.5 (80.0-100.0) fL MCH 30.1 (25.0-35.0) pg MCHC 33.6 (31.0-37.0) g/dL RDW 13.6 (11.5-15.5) % Plt Count 254 (150-450) k/uL MPV 7.4 Neutrophils % 70 % Lymphocytes % 22 % Monocytes % 5 % Eosinophils % 1 % Basophils % 1 % Neutrophils # 6.4 (1.3-7.7) k/uL Lymphocytes # 2.0 (1.0-4.8) k/uL Monocytes # 0.5 (0-1.0) k/uL Eosinophils # 0.1 (0-0.7) k/uL Basophils # 0.0 (0-0.2) k/uL Sodium 138 (137-145) mmol/L Potassium 3.8 (3.5-5.1) mmol/L Chloride 104 (98-107) mmol/L Carbon Dioxide 22 (22-30) mmol/L Anion Gap 12 mmol/L BUN 9 (9-20) mg/dL Creatinine 0.94 (0.66-1.25) mg/dL Est GFR (CKD-EPI)AfAm >90 (>60 ml/min/1.73 sqM) Est GFR (CKD-EPI)NonAf >90 (>60 ml/min/1.73 sqM) Glucose 99 (74-99) mg/dL Plasma Lactic Acid Nicholas 0.9 (0.7-2.0) mmol/L Calcium 10.3 H (8.4-10.2) mg/dL Total Bilirubin 0.7 (0.2-1.3) mg/dL AST 28 (17-59) U/L ALT 32 (4-49) U/L Alkaline Phosphatase 60 (38-126) U/L Total Protein 7.6 (6.3-8.2) g/dL Albumin 4.9 (3.5-5.0) g/dL Urine Color Urine Appearance (Clear) Urine pH (5.0-8.0) Ur Specific [place] (1.001-1.035) Urine Protein (Negative) Urine Glucose (UA) (Negative) Urine Ketones (Negative) Urine Blood (Negative) Urine Nitrite (Negative) Urine Bilirubin (Negative) Urine Urobilinogen (<2.0) mg/dL Ur Leukocyte Esterase (Negative) 12/28/20 Range/Units 02:16 WBC (3.8-10.6) k/uL RBC (4.30-5.90) m/uL Hgb (13.0-17.5) gm/dL Hct (39.0-53.0) % MCV (80.0-100.0) fL MCH (25.0-35.0) pg MCHC (31.0-37.0) g/dL RDW (11.5-15.5) % Plt Count (150-450) k/uL MPV Neutrophils % % Lymphocytes % % Monocytes % % Eosinophils % % Basophils % % Neutrophils # (1.3-7.7) k/uL Lymphocytes # (1.0-4.8) k/uL Monocytes # (0-1.0) k/uL Eosinophils # (0-0.7) k/uL Basophils # (0-0.2) k/uL Sodium (137-145) mmol/L Potassium (3.5-5.1) mmol/L Chloride (98-107) mmol/L Carbon Dioxide (22-30) mmol/L Anion Gap mmol/L BUN (9-20) mg/dL Creatinine (0.66-1.25) mg/dL Est GFR (CKD-EPI)AfAm (>60 ml/min/1.73 sqM) Est GFR (CKD-EPI)NonAf (>60 ml/min/1.73 sqM) Glucose (74-99) mg/dL Plasma Lactic Acid Nicholas (0.7-2.0) mmol/L Calcium (8.4-10.2) mg/dL Total Bilirubin (0.2-1.3) mg/dL AST (17-59) U/L ALT (4-49) U/L Alkaline Phosphatase (38-126) U/L Total Protein (6.3-8.2) g/dL Albumin (3.5-5.0) g/dL Urine Color Yellow Urine Appearance Clear (Clear) Urine pH 6.0 (5.0-8.0) Ur Specific [place] 1.023 (1.001-1.035) Urine Protein Trace H (Negative) Urine Glucose (UA) Negative (Negative) Urine Ketones 3+ H (Negative) Urine Blood Negative (Negative) Urine Nitrite Negative (Negative) Urine Bilirubin Negative (Negative) Urine Urobilinogen <2.0 (<2.0) mg/dL Ur Leukocyte Esterase Negative (Negative) - EKG Data -: EKG Interpreted by [place] EKG shows normal: sinus rhythm, axis (Normal), intervals (Normal), QRS complexes (Normal), ST-T waves (Normal) Rate: tachycardia (Rate 116 bpm) Disposition Clinical Impression: Nausea & vomiting, Hypertension Disposition: HOME SELF-CARE Condition: Good Instructions (If sedation given, give patient instructions): Acute Nausea and Vomiting (ED), Hypertension (ED) Prescriptions: LORazepam [Ativan] 1 mg PO TID 3 Days #15 tab cloNIDine HCL 0.2 mg PO Q8H #18 tablet Ondansetron [Zofran ODT] 4 mg PO Q8HR #20 tab Is patient prescribed a controlled substance at d/c from ED?: No Referrals: Eladio Mendez MD [Primary Care Provider] - 1-2 days Ciara Velasco MD [STAFF PHYSICIAN] - 1-2 days
[2020-12-28 02:41] LABS: ALT 32 U/L (4-49); AST 28 U/L (17-59); African American GFR (CKD) >90 (>60 ml/min/1.73 sqM); Albumin 4.9 g/dL (3.5-5.0); Alkaline Phosphatase 60 U/L (38-126); Anion Gap 12 mmol/L; Blood Urea Nitrogen 9 mg/dL (9-20); Calcium 10.3 mg/dL (8.4-10.2); Carbon Dioxide 22 mmol/L (22-30); Chloride 104 mmol/L (98-107); Glucose 99 mg/dL (74-99); Non-African American GFR(CKD) >90 (>60 ml/min/1.73 sqM); Potassium 3.8 mmol/L (3.5-5.1); Sodium 138 mmol/L (137-145); Total Bilirubin 0.7 mg/dL (0.2-1.3); Total Protein 7.6 g/dL (6.3-8.2)
[2020-12-28 02:48] LABS: Appearance,Urine Clear (Clear); Bilirubin,Urine Negative (Negative); Blood,Urine Negative (Negative); Color,Urine Yellow; Glucose,Urine (UA) Negative (Negative); Ketones,Urine 3+ (Negative); Leukocyte Esterase,Urine Negative (Negative); Nitrite,Urine Negative (Negative); Protein,Urine Trace (Negative); Specific Gravity,Urine 1.023 (1.001-1.035); Urobilinogen,Urine <2.0 mg/dL (<2.0)
[2020-12-28 02:59] LABS: Basophils % (A) 1 %; Eosinophils # (A) 0.1 k/uL (0-0.7); Eosinophils % (A) 1 %; HCT 51.6 % (39.0-53.0); HGB 17.3 gm/dL (13.0-17.5); Lymphocytes % (A) 22 %; MCH 30.1 pg (25.0-35.0); MCHC 33.6 g/dL (31.0-37.0); MCV 89.5 fL (80.0-100.0); Mean Platelet Volume 7.4; Monocytes # (A) 0.5 k/uL (0-1.0); Monocytes % (A) 5 %; Neutrophils # (A) 6.4 k/uL (1.3-7.7); Neutrophils % (A) 70 %; Platelet Count 254 k/uL (150-450); RBC 5.76 m/uL (4.30-5.90); RDW 13.6 % (11.5-15.5); WBC 9.2 k/uL (3.8-10.6)
[2020-12-28] MEDS ORDERED: METOCLOPRAMIDE 5 MG/ML 2 ML VIAL IVP STA (03:05)
[2020-12-28] MEDS ORDERED: LORazepam 2 MG/ML INJ IV STA ×2 (03:15→05:55)
--- NOTE | 2020-12-28 05:16 | XR ---
EXAMINATION TYPE: XR KUB DATE OF EXAM: 12/28/2020 COMPARISON: 09/14/2019 HISTORY: Abdominal pain TECHNIQUE: 2 views upright FINDINGS: There is no sign of intestinal obstruction or pneumoperitoneum. Fecal pattern is normal. Th ere is no evidence of a mass. There are no pathologic calcifications over the kidneys. Bony structure s are intact. Lung bases are clear. IMPRESSION: Nonacute abdomen. No change.
[2020-12-28] MEDS ORDERED: cloNIDine HCL 0.2 MG TAB PO STA (05:55)
[2020-12-28 06:17] VITALS: BP 141/98; PULSE 108; TEMP 97.8
== END 2020-12-28 06:22 | disposition home or self-care (01) ==
LOC: EC 01:07
DX: R11.2 Nausea with vomiting, unspecified (principal); I10 Essential (primary) hypertension; R10.84 Generalized abdominal pain; K21.9 Gastro-esophageal reflux disease without esophagitis; F17.200 Nicotine dependence, unspecified, uncomplicated; Z79.899 Other long term (current) drug therapy
CPT/HCPCS: 36415; 93005; 80053; 83605; 85025; 81003; 74018; 99284; 96374; 96375; 96376; 96361; J2060; J2765; J2405

== ENCOUNTER → 2021-05-24 | Outpatient (CLI) | payer OTHER ==
--- NOTE | 2021-05-24 13:14 | SFUN ---
SLEEP CENTER FOLLOW UP NOTE DATE OF SERVICE: 05/24/2021 This 30-year-old gentleman has been followed in Sleep Center for treatment of obstructive sleep apnea-hypopnea syndrome. Recently the patient had a polysomnogram and CPAP titration, and subsequently I ordered for him a CPAP unit. Today is his first visit after he started to use the CPAP equipment. I discussed the results of his sleep studies with the patient in detail. He feels better since starting to use CPAP equipment. He sleeps better and feels better during the day. He feels that he has a leak from the full-face mask to the eye area. Position of the machine is about the same as his head. I checked information about his CPAP unit. Range of the pressure is 7 to 12 cm of water, average pressure 10.9, maximal 11.4. Usage is 97% of the nights and 83% of nights for more than 4 hours, average 6 hours 32 minutes, which is good compliance. Leak is 12.6 L/minute, which is borderline. Apnea-hypopnea index is 3.6, which is in normal range. The patient feels that he would like to have the pressure slightly higher. [place] Sleepiness Scale today is 4. MEDICATIONS: 1. Gabapentin once a day. 2. Omeprazole once a day. 3. Hydrochlorothiazide once a day. 4. Seroquel once a day. 5. Testosterone injection every 3 days. PHYSICAL EXAMINATION: GENERAL: Pleasant patient in no distress. VITAL SIGNS: BP 143/91, HR 84, RR 15, weight 215.4, temperature 96.7, oxygen saturation at room air 96%. HEENT: PERRLA, EOMI, evaluation of oropharynx showed tongue protrudes midline. Low position of soft palate. NECK: Supple, no JVD. Thyroid is not palpable. LUNGS: Clear to percussion and to auscultation. Good air exchange. No wheezing or rhonchi. HEART: S1, S2 regular. No murmurs, gallops, or rubs. ABDOMEN: Soft and nontender. Bowel sounds are present. No organomegaly appreciated. EXTREMITIES: No clubbing or cyanosis. RN FIRST ASSISTANT: Awake, alert, and oriented X3. Cranial nerves 2 to 7 intact. There is no fasciculation or atrophy. noted. No focal deficits observed. IMPRESSION: 1. Obstructive sleep apnea-hypopnea syndrome. Patient demonstrated good compliance with treatment, benefitting from treatment. He feels some discomfort with the full- face mask which covers his nose from above. 2. History of depression. 3. Acid reflux. 4. History of hypertension. 5. History of chronic obstructive pulmonary disease. 6. History of epilepsy; no recent episodes. 7. History of sinus headaches. 8. History of nightmares. 9. History of some out of [id number] movements; no recent episodes while on treatment with CPAP. PLAN: 1. I changed the regimen of his CPAP to a range of pressure from 7 to 15. 2. I discussed with the patient the position of the machine during sleep, which should be lower than his head. 3. Patient will continue to use PAP equipment every night for the whole night. 4. Sleep hygiene with regular time in bed for at least 7-1/2 to 8 hours. 5. Precautions related to driving. No driving if feeling sleepiness. 6. I will maintain all necessary prescription for PAP supplies including mask, tube, filters. 7. Watching weight. 8. Follow-up visit in 6 months or earlier if patient has any problems. Thank you very much for allowing me to participate in the management of your patient. Sincerely, Surendra Craig MD, PhD, FAASM Diplomat of [place] [employer] Sleep Medicine Board of [place] [employer] [facility] [place] MMODL / PABLO: [id number] /
== END | disposition home or self-care (01) ==
LOC: SLEEP 10:30
PROVIDERS: ATTEND Internal Medicine
DX: G47.33 Obstructive sleep apnea (adult) (pediatric) (principal); K21.9 Gastro-esophageal reflux disease without esophagitis; I10 Essential (primary) hypertension; Z86.59 Personal history of other mental and behavioral disorders; Z87.09 Personal history of other diseases of the respiratory system; Z86.69 Personal history of other diseases of the nervous system and sense organs

== ENCOUNTER 2021-10-06 13:32 | Emergency (ER) | payer OTHER ==
[2021-10-06 13:46] VITALS: BP 127/75; PULSE 103; RESP 20; TEMP 98.6
--- NOTE | 2021-10-06 13:50 | ED ---
General Adult HPI - General Stated complaint: Stepped on nail Time Seen by Provider: 10/06/21 13:39 Source: patient, RN notes reviewed Mode of arrival: ambulatory Limitations: no limitations - History of Present Illness Initial comments: This a 31-year-old male presents emergency Department chief complaint of puncture wound right foot. Patient states that he stepped on a nail that was in a board through his shoe. This happened last night he had a puncture wound by his first MTP region. States there is mild discomfort. There is small amount redness. No fevers or chills no paresthesias. Patient denies any other complaints. Patient does state that his tetanus is within last 5 years. - Related Data Home Medications Medication Instructions Recorded Confirmed Gabapentin 800 mg PO QID 09/14/19 11/23/19 Omeprazole [PriLOSEC] 40 mg PO BID 09/14/19 11/23/19 Testosterone Cypionate 150 mg IM FR 09/14/19 11/23/19 [Depo-Testosterone] buPROPion HCL [Wellbutrin XL] 300 mg PO DAILY 09/14/19 11/23/19 Metoclopramide [Reglan] 10 mg PO TID PRN 11/23/19 11/23/19 Ondansetron [Zofran] 4 mg PO TID PRN 11/23/19 11/23/19 SUMAtriptan succinate 100 mg PO DAILY PRN 11/23/19 11/23/19 cloNIDine HCL [Catapres] 0.1 mg PO TID PRN 11/23/19 11/23/19 tadalafiL 10 mg PO DAILY PRN 11/23/19 11/23/19 tadalafiL [Cialis] 5 mg PO DAILY PRN 11/23/19 11/23/19 Previous Rx's Medication Instructions Recorded Nicotine 14Mg/24Hr Patch [Habitrol] 1 patch TRANSDERM DAILY #30 patch 11/25/19 Pantoprazole Sodium [Protonix] 40 mg PO BID #60 tab 11/25/19 LORazepam [Ativan] 1 mg PO TID 3 Days #15 tab 12/28/20 Ondansetron [Zofran ODT] 4 mg PO Q8HR #20 tab 12/28/20 cloNIDine HCL 0.2 mg PO Q8H #18 tablet 12/28/20 Ciprofloxacin HCl [Cipro] 500 mg PO Q12HR #14 tablet 10/06/21 Allergies Allergy/AdvReac Type Severity Reaction Status Date / Time No Known Allergies Allergy Verified 10/06/21 13:46 Review of Systems ROS Statement: Those systems with pertinent positive or pertinent negative responses have been documented in the HPI. ROS Other: All systems not noted in ROS Statement are negative. Past Medical History Past Medical History: GERD/Reflux History of Any Multi-Drug Resistant Organisms: MRSA Date of last positivie culture/infection: 2016 MDRO Source:: leg Past Surgical History: No Surgical Hx Reported Past Psychological History: Anxiety, Depression Smoking Status: Current every day smoker Past Alcohol Use History: Rare Past Drug Use History: Heroin General Exam Limitations: no limitations General appearance: alert, in no apparent distress Head exam: Present: atraumatic, normocephalic, normal inspection Neck exam: Present: normal inspection. Absent: tenderness, meningismus, lymphadenopathy Respiratory exam: Present: normal lung sounds bilaterally. Absent: respiratory distress, wheezes, rales, rhonchi, stridor Cardiovascular Exam: Present: regular rate, normal rhythm, normal heart sounds. Absent: systolic murmur, diastolic murmur, rubs, gallop, clicks Extremities exam: Present: other (Right foot plantar surface by the MTP first there is noted small puncture wound noted bleeding there area is mildly tender with palpation Reflux 2 seconds pedal pulses equal bilaterally) Course Vital Signs 10/06/21 13:44 Temperature 98.6 F Pulse Rate 103 H Respiratory 20 Rate Blood Pressure 127/75 O2 Sat by Pulse 99 Oximetry Medical Decision Making - Medical Decision Making X-ray was performed shows no acute foreign body., Patient has tetanus up-to-date patient be placed on ciprofloxacin. Disposition Clinical Impression: Puncture wound of right foot Disposition: HOME SELF-CARE Condition: Stable Instructions (If sedation given, give patient instructions): Puncture Wound in the Foot (ED) Additional Instructions: Please return to the Emergency Department if symptoms worsen or any other concerns. Prescriptions: Ciprofloxacin HCl [Cipro] 500 mg PO Q12HR #14 tablet Is patient prescribed a controlled substance at d/c from ED?: No Referrals: Eladio Mendez MD [Primary Care Provider] - 1-2 days Time of Disposition: 14:19
--- NOTE | 2021-10-06 14:22 | XR ---
Right foot. HISTORY: Pain/nail puncture wound. COMPARISON: None. TECHNIQUE: 3 views the right foot were obtained. FINDINGS: The osseous structures are intact there is no fracture or dislocation. No intra-articular abnormaliti es are seen. There is no radiopaque foreign body or soft tissue gas. IMPRESSION: No significant abnormality seen.
== END 2021-10-06 15:28 | disposition home or self-care (01) ==
LOC: EC 13:32
DX: S91.331A Puncture wound without foreign body, right foot, initial encounter (principal); K21.9 Gastro-esophageal reflux disease without esophagitis; Z79.899 Other long term (current) drug therapy; W22.8XXA Striking against or struck by other objects, initial encounter
CPT/HCPCS: 99283